=== PATIENT | female | born 1995 | race Two or more races ===

== ENCOUNTER 2020-07-04 10:42 | Outpatient (CLI) | payer OTHER | END 2020-07-04 10:43 | disposition EMS.NT | LOC: EMS 10:42 | PROVIDERS: ATTEND Surgery | DX: R42 Dizziness and giddiness (principal); R53.1 Weakness; R20.0 Anesthesia of skin ==

== ENCOUNTER 2020-07-04 11:40 | Emergency (ER) | payer OTHER ==
--- NOTE | 2020-07-04 12:01 | ED Physician Documentation ---
History of Present Illness - Stated complaint Stated Complaint: FACIAL NUMBNESS - Chief complaint Chief Complaint: Neuro - History obtained from History obtained from: Patient - Additonal information Additional information: Generally healthy 24 yo F presents feeling dizzy and had transient right arm and right facial tingling. The facial tingling has resolved and the right arm tingling has decreased since it started. Sx started just prior to her calling EMS, now approximately about 45 min ago. No headache, vision changes, facial droop, speech difficulty, confusion, or extremity weakness. Denies cough or URI sx, cp, dyspnea, abd pain, n/v/d, or urinary sx. States she ate per normal this AM (cereal for breakfast) and had coffee and a little water. Does have a hx/o anxiety but usually gets chest heaviness and palpitations with her anxiety. Review of Systems Constitutional: reports: Reviewed and negative Eyes: reports: Reviewed and negative Ears: reports: Reviewed and negative Nose: reports: Reviewed and negative Throat: reports: Reviewed and negative Cardiac: reports: Reviewed and negative Respiratory: reports: Reviewed and negative GI: reports: Reviewed and negative : reports: Reviewed and negative Skin: reports: Reviewed and negative Musculoskeletal: reports: Reviewed and negative Neurologic: reports: Numbness. denies: Focal weakness, Difficulty speaking, Syncope, Seizure, Confused, Altered mental status, Unresponsive, Headache, Head injury, LOC Psychiatric: reports: Anxiety. denies: Depressed, Suicidal, Homicidal, Hallucinations, Delusions, Insomnia Endocrine: reports: Reviewed and negative Immunocompromised: reports: Reviewed and negative PD PAST MEDICAL HISTORY - Past Medical History Past Medical History: Yes Psych: Anxiety - Present Medications Home Medications: Ambulatory Orders Medication Instructions Recorded Confirmed No Known Home Medications 07/04/20 07/04/20 - Allergies Allergies/Adverse Reactions: Allergies Allergy/AdvReac Type Severity Reaction Status Date / Time No Known Drug Allergies Allergy Verified 07/04/20 11:53 PD ED PE NORMAL - Vitals Vital signs reviewed: Yes - General General: Alert and oriented X 3, No acute distress - HEENT HEENT: Atraumatic, PERRL, EOMI, Ears normal, Moist mucous membranes, Pharynx benign, Dentition benign - Neck Neck: Supple, no meningeal sign, No bony TTP, No adenopathy, Thyroid normal, No JVD - Cardiac Cardiac: RRR (tachy on admit, resolved ), No murmur, No gallop, No rub - Respiratory Respiratory: No respiratory distress, Clear bilaterally - Abdomen Abdomen: Normal bowel sounds, Soft, Non tender, Non distended - Female Female : Deferred - Derm Derm: Normal color, Warm and dry, No rash - Extremities Extremities: No deformity, No tenderness to palpate, Normal ROM s pain, No edema, No calf tenderness / cord - Neuro Neuro: Alert and oriented X 3, vp compliance 2-12 intact, No motor deficit, No sensory deficit, Normal speech Eye Opening: Spontaneous Motor: Obeys Commands Verbal: Oriented GCS Score: 15 - Psych Psych: Normal mood, Normal affect Results - Vitals Vitals: Vital Signs - 24 hr 07/04/20 07/04/20 11:45 13:36 Temperature 37.0 C 36.9 C Heart Rate 111 H 92 Respiratory 21 14 Rate Blood Pressure 117/87 H 129/92 H O2 Saturation 100 100 Oxygen O2 Source Room air - Labs Labs: Laboratory Tests 07/04/20 07/04/20 07/04/20 11:56 11:56 12:20 WBC 7.5 RBC 4.98 Hgb 14.5 Hct 44.4 MCV 89.2 MCH 29.1 MCHC 32.7 RDW 13.4 Plt Count 221 MPV 12.5 H Neut # (Auto) 4.6 Lymph # (Auto) 2.2 [place] # (Auto) 0.4 Eos # (Auto) 0.2 Baso # (Auto) 0.1 Absolute Nucleated RBC 0.00 Nucleated RBC % 0.0 Sodium 138 Potassium 3.5 Chloride 105 Carbon Dioxide 23 Anion Gap 10.0 BUN 5 L Creatinine 0.6 Estimated GFR (MDRD) 122 Glucose 92 Calcium 9.5 Urine Color LT. YELLOW Urine Clarity HAZY Urine pH 7.0 Ur Specific [place] <=1.005 Urine Protein NEGATIVE Urine Glucose (UA) NEGATIVE Urine Ketones NEGATIVE Urine Occult Blood NEGATIVE Urine Nitrite NEGATIVE Urine Bilirubin NEGATIVE Urine Urobilinogen 0.2 (NORMAL) Ur Leukocyte Esterase TRACE H Urine RBC 0-5 Urine WBC 0-3 Ur Squamous Epith Cells FEW Squamous Urine Bacteria Few Ur Microscopic Review INDICATED Urine Culture Comments INDICATED Urine HCG, Qual NEGATIVE PD MEDICAL DECISION MAKING - ED course Complexity details: reviewed results, re-evaluated patient, considered differential, d/w patient ED course: 24 yo F presented with dizziness and right facial and arm tingling that had partially resolved. Differentials considered included TIA or CVA, dehydration, electrolyte disturbance, anxiety, infection, . Her neuro exam here was unremarkable and she is low risk for an acute neuro event and therefore I did not feel a CT or other imaging was necessary. Her sx nearly resolved throughout ER stay. She was tachycardic on arrival and this improved with IVF. Her labs were reassuring and not suggestive of infection, UTI, or . She does have a hx/o anxiety and I suspect that her sx today may have been stress/anxiety induced and encouraged pt to get rest, self-care, stay well hydrated, avoid caffeine. If new sx arise or she has worsening sx, pt advised to return to the ER. Departure - Departure Disposition: 01 Home, Self Care Clinical Impression: Dizziness Condition: Good Instructions: ED Dizziness UKO Comments: You presented with dizziness and transient numbness of the right face and arm. Your neurologic exam was normal and there were no focal findings of weakness, speech difficulty or other concerns. Your heart rate and symptoms improved with intravenous fluids and nausea medication. Your labs were all reassuring. I suspect this may have been triggered by anxiety and stress. Please follow up with your primary doctor within the next week and return at anytime to the ER if you have new or worsening symptoms.
[2020-07-04 12:02] LABS: BASOPHILS # (AUTO) 0.1 10^3/uL (0.0-0.1); BASOPHILS % (AUTO) 0.9 %; EOSINOPHILS # (AUTO) 0.2 10^3/uL (0.0-0.7); EOSINOPHILS % (AUTO) 2.1 %; HGB - HEMOGLOBIN 14.5 g/dL (12.0-16.0); LYMPHOCYTES # (AUTO) 2.2 10^3/uL (1.5-3.5); LYMPHOCYTES % (AUTO) 29.1 %; MEAN CORPUSCULAR HEMOGLOBIN 29.1 pg (27.0-31.0); MEAN CORPUSCULAR HGB CONC 32.7 g/dL (32.0-36.0); MEAN CORPUSCULAR VOLUME 89.2 fL (81.0-99.0); MEAN PLATELET VOLUME 12.5 fL (7.9-10.8); MONOCYTES # (AUTO) 0.4 10^3/uL (0.0-1.0); MONOCYTES % (AUTO) 5.7 %; NEUTROPHILS # (AUTO) 4.6 10^3/uL (1.5-6.6); NEUTROPHILS % (AUTO) 61.9 %; PLT - PLATELET COUNT 221 10^3/uL (130-450); RED BLOOD COUNT 4.98 10^6/uL (4.20-5.40); RED CELL DISTRIBUTION WIDTH 13.4 % (12.0-15.0); WHITE BLOOD COUNT 7.5 x10^3/uL (4.8-10.8)
[2020-07-04 12:14] LABS: CALCIUM 9.5 mg/dL (8.5-10.3); CREATININE 0.6 mg/dL (0.4-1.0)
[2020-07-04 12:38] LABS: BILIRUBIN,URINE NEGATIVE (NEGATIVE); GLUCOSE, URINE (UA) NEGATIVE (NEGATIVE); KETONES,URINE (UA) NEGATIVE (NEGATIVE); LEUKOCYTE ESTERASE, URINE TRACE (NEGATIVE); NITRITE,URINE NEGATIVE (NEGATIVE); OCCULT BLOOD,URINE NEGATIVE (NEGATIVE); PROTEIN,URINE NEGATIVE (NEGATIVE); UROBILINOGEN,URINE 0.2 (NORMAL) E.U./dL (NORMAL)
[2020-07-04 12:39] LABS: CLARITY,URINE HAZY (CLEAR)
[2020-07-04 12:41] LABS: HCG UR QUAL NEGATIVE
[2020-07-04] MEDS ORDERED: SODIUM CHLORIDE 0.9% 500 ML IV STA (12:54)
[2020-07-04] MEDS ORDERED: ONDANSETRON 4 MG/2 ML VIAL IVP STA (12:54)
[2020-07-04 12:57] LABS: BACTERIA,URINE Few /HPF (None Seen); RBC,URINE 0-5 /HPF (0-5); SQUAMOUS EPITHELIAL CELL,UR FEW Squamous (<= Few)
[2020-07-04 13:37] VITALS: BP 129/92
== END 2020-07-04 13:59 | disposition home or self-care (01) ==
LOC: ED 11:40
DX: R42 Dizziness and giddiness (principal)
CPT/HCPCS: 36415; 80048; 81001; 81003; 81025; 85025; 87086; 96374; 99284

== ENCOUNTER 2021-06-26 14:44 | Emergency (ER) | payer OTHER ==
[2021-06-26 14:55] VITALS: BP 118/78
[2021-06-26] MEDS ORDERED: diphenhydrAMINE INJ 50 MG/ML VIAL IVP STA (15:23)
[2021-06-26] MEDS ORDERED: KETOROLAC 30 MG/ML VIAL IVP STA (15:23)
[2021-06-26] MEDS ORDERED: PROMETHAZINE INJ 25 MG in SODIUM CHLORIDE 0.9% 50 ML IV STA (15:23)
[2021-06-26 15:42] LABS: BASOPHILS # (AUTO) 0.1 10^3/uL (0.0-0.1); BASOPHILS % (AUTO) 0.7 %; EOSINOPHILS # (AUTO) 0.1 10^3/uL (0.0-0.7); EOSINOPHILS % (AUTO) 0.6 %; HCT - HEMATOCRIT 43.7 % (37.0-47.0); HGB - HEMOGLOBIN 14.4 g/dL (12.0-16.0); LYMPHOCYTES # (AUTO) 1.3 10^3/uL (1.5-3.5); LYMPHOCYTES % (AUTO) 11.9 %; MEAN CORPUSCULAR HEMOGLOBIN 29.5 pg (27.0-31.0); MEAN CORPUSCULAR VOLUME 89.5 fL (81.0-99.0); MEAN PLATELET VOLUME 11.7 fL (7.9-10.8); MONOCYTES # (AUTO) 0.4 10^3/uL (0.0-1.0); MONOCYTES % (AUTO) 3.9 %; NEUTROPHILS # (AUTO) 8.8 10^3/uL (1.5-6.6); NEUTROPHILS % (AUTO) 82.6 %; PLT - PLATELET COUNT 219 10^3/uL (130-450); RED BLOOD COUNT 4.88 10^6/uL (4.20-5.40); RED CELL DISTRIBUTION WIDTH 13.1 % (12.0-15.0); WHITE BLOOD COUNT 10.6 x10^3/uL (4.8-10.8)
[2021-06-26 15:44] LABS: BILIRUBIN,URINE NEGATIVE (NEGATIVE); CLARITY,URINE HAZY (CLEAR); GLUCOSE, URINE (UA) NEGATIVE (NEGATIVE); KETONES,URINE (UA) 40 mg/dL (NEGATIVE); LEUKOCYTE ESTERASE, URINE NEGATIVE (NEGATIVE); NITRITE,URINE NEGATIVE (NEGATIVE); OCCULT BLOOD,URINE SMALL (NEGATIVE); PROTEIN,URINE NEGATIVE (NEGATIVE); UROBILINOGEN,URINE 0.2 (NORMAL) E.U./dL (NORMAL)
[2021-06-26 15:47] LABS: HCG UR QUAL NEGATIVE
[2021-06-26 15:54] LABS: BACTERIA,URINE Few /HPF (None Seen); MUCUS,URINE Moderate Strands; SQUAMOUS EPITHELIAL CELL,UR MOD Squamous (<= Few); WBC,URINE 0-3 /HPF (0-5)
[2021-06-26 15:55] LABS: ALBUMIN 4.5 g/dL (3.2-5.5); ALBUMIN/GLOBULIN RATIO 1.2 (1.0-2.2); BILIRUBIN,TOTAL 0.6 mg/dL (0.2-1.0); CALCIUM 9.5 mg/dL (8.5-10.3); CREATININE 0.6 mg/dL (0.4-1.0); POTASSIUM 3.6 mmol/L (3.5-5.0); TOTAL PROTEIN 8.2 g/dL (6.7-8.2)
--- NOTE | 2021-06-26 16:25 | CT Report ---
PROCEDURE: HEAD WO INDICATIONS: headache, facial numbness TECHNIQUE: Noncontrast 4.5 mm thick angled axial sections acquired from the foramen magnum to the vertex. For r adiation dose reduction, the following was used: automated exposure control, adjustment of mA and/or kV according to patient size. COMPARISON: None. FINDINGS: Image quality: Excellent. CSF spaces: Basal cisterns are patent. No extra-axial fluid collections. Ventricles are normal in size and shape. Brain: No midline shift. No intracranial masses or hemorrhage. [place]-white matter interface is norm al. Skull and face: Calvarium and visualized facial bones are intact, without suspicious lesions. Sinuses: Visualized sinuses and mastoids are clear. IMPRESSION: No imaging explanation is found for the patient's presenting symptoms. Unremarkable noncontrast head CT. If it would be helpful for clinical management decision making, please consider a dedicated brain MRI (trigeminal nerve protocol, without and with contrast) for further evaluation (assuming that there i s no contraindication). Reviewed by: Armond Crabtree MD on 06/26/2021 3:23 PM RUST Approved by: Armond Crabtree MD on 06/26/2021 3:23 PM RUST Station ID: [id number]
--- NOTE | 2021-06-26 16:29 | ED Physician Documentation ---
PD HPI HEADACHE - Stated complaint Stated Complaint: SPOTTED VISION,DIZZY,NUMB FACE - Chief complaint Chief Complaint: Neuro - History obtained from History obtained from: Patient - History of Present Illness Timing - onset: How many hours ago (3), Today Timing - onset during: Rest Timing - duration: Hours (3) Timing - details: Gradual onset Pain level max: 8 Pain level now: 7 Location: Front, Right Quality: Throbbing, Aching Associated symptoms: No: Fever, Stiff neck, Nausea, Vomiting, Weakness, Numbness, Syncope, Seizure Improved by: Rest Worsened by: Light, Noise Recently seen: Not recently seen - Additional information Additional information: Patient is a 25-year-old female who presents to the emergency department with a headache today. Gradual in onset. She developed this numbness and tingling to the right side of her face as well as tingling to the right arm associated with difficulty forming words at the same time. Similar to her prior migraines. No fevers. No chills. No recent trauma. Has not taken anything for the headache. Review of Systems Ten Systems: 10 systems reviewed and negative Constitutional: denies: Fever, Chills Ears: denies: Ear pain Nose: denies: Rhinorrhea / runny nose, Congestion Respiratory: denies: Cough GI: denies: Nausea, Vomiting, Diarrhea Skin: denies: Rash Musculoskeletal: denies: Neck pain, Back pain Neurologic: denies: Confused, Altered mental status PD PAST MEDICAL HISTORY - Past Medical History Past Medical History: Yes Neuro: Migraines Psych: Anxiety - Past Surgical History Past Surgical History: Yes General: Cholecystectomy - Present Medications Home Medications: Ambulatory Orders Medication Instructions Recorded Confirmed No Known Home Medications 07/04/20 06/26/21 - Allergies Allergies/Adverse Reactions: Allergies Allergy/AdvReac Type Severity Reaction Status Date / Time No Known Drug Allergies Allergy Verified 06/26/21 14:50 - Social History Does the pt smoke?: No Smoking Status: Never smoker Does the pt drink ETOH?: Yes Does the pt have substance abuse?: No PD ED PE NORMAL - Vitals Vital signs reviewed: Yes - General General: Alert and oriented X 3, No acute distress, Well developed/nourished - HEENT HEENT: PERRL, Moist mucous membranes - Neck Neck: Supple, no meningeal sign - Cardiac Cardiac: RRR, Strong equal pulses - Respiratory Respiratory: No respiratory distress, Clear bilaterally - Abdomen Abdomen: Soft, Non tender, Non distended - Derm Derm: Warm and dry - Extremities Extremities: Normal ROM s pain, No edema, No calf tenderness / cord - Neuro Neuro: Alert and oriented X 3, planer off bearer 2-12 intact, No motor deficit, No sensory deficit, Normal speech Eye Opening: Spontaneous Motor: Obeys Commands Verbal: Oriented GCS Score: 15 - Psych Psych: Normal mood, Normal affect - Free text exam Free text exam: NIHSS 0 Results - Vitals Vitals: Vital Signs - 24 hr 06/26/21 14:51 Temperature 36.4 C L Heart Rate 97 Respiratory 16 Rate Blood Pressure 118/78 O2 Saturation 98 Oxygen O2 Source Room air - Labs Labs: Laboratory Tests 06/26/21 06/26/21 06/26/21 15:30 15:38 15:38 WBC 10.6 RBC 4.88 Hgb 14.4 Hct 43.7 MCV 89.5 MCH 29.5 MCHC 33.0 RDW 13.1 Plt Count 219 MPV 11.7 H Neut # (Auto) 8.8 H Lymph # (Auto) 1.3 L [place] # (Auto) 0.4 Eos # (Auto) 0.1 Baso # (Auto) 0.1 Absolute Nucleated RBC 0.00 Nucleated RBC % 0.0 Sodium 136 Potassium 3.6 Chloride 102 Carbon Dioxide 24 Anion Gap 10.0 BUN 6 Creatinine 0.6 Estimated GFR (MDRD) 121 Glucose 119 H Calcium 9.5 Total Bilirubin 0.6 AST 18 ALT 20 Alkaline Phosphatase 50 Total Protein 8.2 Albumin 4.5 Globulin 3.7 Albumin/Globulin Ratio 1.2 Lipase 27 Urine Color YELLOW Urine Clarity HAZY Urine pH 6.0 Ur Specific [place] 1.025 Urine Protein NEGATIVE Urine Glucose (UA) NEGATIVE Urine Ketones 40 H Urine Occult Blood SMALL H Urine Nitrite NEGATIVE Urine Bilirubin NEGATIVE Urine Urobilinogen 0.2 (NORMAL) Ur Leukocyte Esterase NEGATIVE Urine RBC 6-10 H Urine WBC 0-3 Ur Squamous Epith Cells MOD Squamous H Urine Bacteria Few Urine Mucus Moderate Strands Ur Microscopic Review INDICATED Urine Culture Comments NOT INDICATED Urine HCG, Qual NEGATIVE - Rads (name of study) head Ct Radiology: Final report received, EMP read contemporaneously, See rad report (No acute abnormality) PD MEDICAL DECISION MAKING - ED course Complexity details: reviewed old records, re-evaluated patient, considered differential, d/w patient ED course: 25-year-old female with what appears to be a complex migraine. The headache was treated with Benadryl, Toradol and Phenergan. Headache resolved and neurological symptoms resolved. Recommend that she follow-up with her doctor for further care. No evidence of stroke. Patient counseled regarding signs and symptoms for which I believe and urgent re-evaluation would be necessary. Patient with good understanding of and agreement to plan and is comfortable going home at this time This document was made in part using voice recognition software. While efforts are made to proofread this document, sound alike and grammatical errors may occur. Departure - Departure Disposition: 01 Home, Self Care Clinical Impression: Migraine with aura, not intractable, without status migrainosus Condition: Good Instructions: ED Headache Migraine Follow-Up: your,doctor in 1 week [Other] Comments: Your head CT does not show any acute abnormalities today. Please follow-up with your doctor for further care. Return if you worsen. It appears that you have complex migraines. Your doctor may want to perform an MRI and refer you to a neurologist for further care. Discharge Date/Time: 06/26/21 16:41
== END 2021-06-26 16:41 | disposition home or self-care (01) ==
LOC: ED 14:44
DX: G43.109 Migraine with aura, not intractable, without status migrainosus (principal)
CPT/HCPCS: 36415; 70450; 80053; 81001; 81025; 83690; 85025; 96365; 96375; 99284; J1200; J7040; 81003; 87086

== ENCOUNTER 2023-08-20 12:21 | Outpatient (CLI) | payer OTHER ==
[2023-08-20 12:44] LABS: BASOPHILS # (AUTO) 0.1 10^3/uL (0.0-0.1); BASOPHILS % (AUTO) 0.7 %; EOSINOPHILS # (AUTO) 0.1 10^3/uL (0.0-0.7); EOSINOPHILS % (AUTO) 0.8 %; HCT - HEMATOCRIT 39.9 % (37.0-47.0); HGB - HEMOGLOBIN 13.3 g/dL (12.0-16.0); LYMPHOCYTES # (AUTO) 1.7 10^3/uL (1.5-3.5); LYMPHOCYTES % (AUTO) 18.2 %; MEAN CORPUSCULAR HEMOGLOBIN 29.5 pg (27.0-31.0); MEAN CORPUSCULAR HGB CONC 33.3 g/dL (32.0-36.0); MEAN CORPUSCULAR VOLUME 88.5 fL (81.0-99.0); MEAN PLATELET VOLUME 11.8 fL (7.9-10.8); MONOCYTES # (AUTO) 0.4 10^3/uL (0.0-1.0); MONOCYTES % (AUTO) 3.9 %; NEUTROPHILS % (AUTO) 76.1 %; PLT - PLATELET COUNT 191 10^3/uL (130-450); RED BLOOD COUNT 4.51 10^6/uL (4.20-5.40); RED CELL DISTRIBUTION WIDTH 13.6 % (12.0-15.0); WHITE BLOOD COUNT 9.2 x10^3/uL (4.8-10.8)
[2023-08-21 03:10] LABS: HBsAG SCREEN Negative (Negative)
[2023-08-21 05:12] LABS: HCV AB Non Reactive (Non Reactive); HIV SCREEN 4TH GENERATION Non Reactive (Non Reactive); RPR Non Reactive (Non Reactive)
[2023-08-21 09:09] LABS: VARICELLA-ZOSTER AB IGG 573 index (Immune >165)
== END 2023-08-20 12:22 | disposition home or self-care (01) ==
LOC: LAB 12:21
PROVIDERS: ATTEND Nurse Practitioner Obstetrics & Gynecology
DX: Z36.89 Encounter for other specified antenatal screening (principal)
CPT/HCPCS: 36415; 85025; 86592; 86762; 86787; 86803; 86850; 86900; 86901; 87340; 87389

== ENCOUNTER 2023-10-22 06:41 | Outpatient (CLI) | payer OTHER ==
--- NOTE | 2023-10-22 13:35 | Ultrasound Report ---
PROCEDURE: OB Anatomy Scan INDICATIONS: SUPERVISION OF OUTSIDE/PRIOR DATING DATA: Last menstrual period (LMP): 06/03/24. LMP-based estimated date of delivery (MANDI): 03/09/24. First dating scan (date and location): 08/20/23. Estimated date of delivery (MANDI) from first dating scan: 03/06/24. The below data below was generated using the clincial MANDI of the03/09/24 TECHNIQUE: Real-time scanning was performed of the fetus, with image documentation and biometric measurements. Endovaginal scanning: Not performed. COMPARISON: None. FINDINGS: General: A single living intrauterine gestation is present. Presentation: Transverse Placenta: Placental position is anterior, without previa. Amniotic fluid index: 13.3 cm, within normal limits for gestational age. heart rate: 143 beats per minute. Maternal cervical canal: 4.2 cm long; normal length is 2.5 cm or more. biometrics: Biparietal diameter: 4.6 cm 20 weeks 0 days 45th percentile Head circumference: 17.2 cm 19 weeks 5 days 26th percentile Abdominal circumference: 14.7 cm 20 weeks 0 days 39th percentile Femur length: 3.2 cm 20 weeks 1 day 41st percentile Estimated gestational age from initial scan: 20 weeks 1 day Composite gestational age from present scan: 20 weeks 0 days Estimated weight and percentile: 328 grams 39th percentile Measurement variability in biometric dating: +/- 10 days from 12-20 weeks gestation, +/- 2 weeks from 20-30 weeks gestation, +/- 3 weeks at 30 weeks gestation or later. Anatomic survey: Neuro: Ventricles are normal at less than 10 mm. Cisterna magna is normal at 3-11 mm. Cerebellum i s normal in size and morphology. Nuchal skin fold: Normal at less than 6 mm between 14 and 20 weeks gestational age. Face: Nose and lips, facial profile are normal. Spine: No evidence for spina bifida. Heart: 4-chambered heart is present, with normal ventricular outflow tracts. Echogenic ventricular focus. Diaphragm: Diaphragm is intact. Stomach: Left-sided stomach is present. Kidneys: No hydronephrosis. Normal is less than 5 mm in 2nd trimester, less than 7 mm in 3rd trimester. Cord: 3 vessel cord has orthotopic insertion. Bladder: Normal in size. Extremities: All 4 extremities are visualized. IMPRESSION: Single live intrauterine preganancy with gestational age of 20 weeks 0 days. Echogenic ventricular focus.This is nonspecific. Recommend correlation with clinical history and gen etic testing if indicated. Recommend interval followup imaging. Reviewed by: Jen Knight MD on 10/22/2023 1:34 PM PST Approved by: Jen Knight MD on 10/22/2023 1:34 PM PST Station ID: [id number]
== END 2023-10-22 06:42 | disposition home or self-care (01) ==
LOC: DI 06:41
PROVIDERS: ATTEND Nurse Practitioner Obstetrics & Gynecology
DX: Z34.02 Encounter for supervision of normal first pregnancy, second trimester (principal); Z36.89 Encounter for other specified antenatal screening

== ENCOUNTER 2023-10-31 11:05 | Outpatient (CLI) | payer OTHER | END 2023-10-31 11:06 | disposition home or self-care (01) | LOC: LAB 11:05 | PROVIDERS: ATTEND Nurse Practitioner Obstetrics & Gynecology | DX: Z13.79 Encounter for other screening for genetic and chromosomal anomalies (principal) | CPT/HCPCS: 36415 ==